=== PATIENT | female | born 1965 | race Asian ===

== ENCOUNTER 2016-10-28 09:48 | Observation (INO) | payer OTHER ==
[2016-10-28] VITALS (23 sets, daily range): BP systolic 93–143; BP diastolic 52–64; PULSE 47–66; RESP 12–25; Ht 170.2 cm; Wt 69.7 kg
[~2016-10-28] VITALS: Ht 170.2 cm; Wt 69.7 kg
[~2016-10-28 09:48] MED LIST: CEFAZOLIN 2 GM/50 ML (PMX) 50 ML IVPB SCH; SOD CHLORIDE 0.9% 1,000 ML IV SCH
--- NOTE | 2016-10-28 10:44 | RADRPT ---
PROCEDURE: XR Chest. CLINICAL INDICATION: preprocedure, right-sided breast cancer TECHNIQUE: Single frontal view of the chest was obtained. COMPARISON: None. FINDINGS: The heart and mediastinum are within normal limits. The lungs are clear. There is no significant pleural effusion or pneumothorax. IMPRESSION: No acute disease. RPTAT: EE Physician Amilcar Date Time Electronically viewed and signed by Anthony Loredo Physician on 10/28/2016 10:44 RA/
[2016-10-28 11:29] LABS: ADD SCAN DIFF NO
[2016-10-28] MEDS ORDERED: ONDANSETRON 4 MG INJ IV PRN (11:30)
[2016-10-28] MEDS ORDERED: ACETAMINOPHEN 1000MG/100ML IV 100 ML IVPB PRN (11:30)
[2016-10-28] MEDS ORDERED: morphine 2 MG INJ IV PRN (11:30)
[2016-10-28] MEDS ORDERED: MULTIVITAMINS (11:31)
[2016-10-28 11:43] LABS: BASOPHIL # 0.1 10^3/ul (0.0-0.1); EOSINOPHILS # 0.2 10^3/ul (0.0-0.5); EOSINOPHILS % 3.5 % (0.0-7.0); HEMATOCRIT 41.6 % (37.0-47.0); HEMOGLOBIN 13.4 g/dl (12.0-16.0); LYMPHOCYTES # 2.4 10^3/ul (0.8-2.9); LYMPHOCYTES % 45.3 % (15.0-51.0); MEAN CORPUSCULAR HEMOGLOBIN 31.4 pg (29.0-33.0); MEAN CORPUSCULAR HGB CONC 32.2 g/dl (32.0-37.0); MEAN CORPUSCULAR VOLUME 97.4 fl (82.0-101.0); MEAN PLATELET VOLUME 10.3 fl (7.4-10.4); MONOCYTE # 0.3 10^3/ul (0.3-0.9); MONOCYTES % 6.1 % (0.0-11.0); NEUTROPHIL # 2.3 10^3/ul (1.6-7.5); NEUTROPHILS % 43.9 % (39.0-77.0); PLATELET COUNT 239 10^3/UL (140-415); RED BLOOD COUNT 4.27 10^6/ul (4.20-5.40); RED CELL DISTRIBUTION WIDTH 13.5 % (11.5-14.5); WHITE BLOOD COUNT 5.2 10^3/ul (4.8-10.8)
[2016-10-28 11:49] LABS: INR 0.94; PROTIME 12.6 Sec (12.2-14.2)
[2016-10-28 11:51] LABS: PARTIAL THROMBOPLASTIN TIME 30.9 Sec (25.0-35.0)
[2016-10-28 11:52] LABS: CALCIUM 9.7 mg/dl (8.4-10.2); CREATININE 0.52 mg/dl (0.44-1.00)
[2016-10-28] MEDS ORDERED: ISOSULFAN BLUE 1% 5 ML INJ SC ONE (13:28)
[2016-10-28] MEDS ORDERED: MIDAZOLAM 1 MG/ML 2 ML INJ ONE (13:57)
[2016-10-28] MEDS ORDERED: PROPOFOL 20 ML ONE (13:58)
[2016-10-28] MEDS ORDERED: LIDOCAINE 1% (MDV) 20 ML INJ ONE (13:58)
[2016-10-28] MEDS ORDERED: ONDANSETRON 4 MG INJ ONE (14:16)
[2016-10-28] MEDS ORDERED: CEFAZOLIN 1 GM INJ ONE ×2 (14:16→14:18)
[2016-10-28] MEDS ORDERED: FAMOTIDINE 20 MG INJ ONE (14:16)
[2016-10-28] MEDS ORDERED: DEXAMETHASONE 4 MG/ML 1 ML INJ ONE (14:16)
[2016-10-28] MEDS ORDERED: KETOROLAC 30 MG INJ ONE (14:17)
[2016-10-28] MEDS ORDERED: HYDROmorphONE (0.2 MG/ML) 10ML SYG IV PRN (15:30)
[2016-10-28] MEDS ORDERED: MEPERIDINE 25 MG INJ IV PRN (15:30)
[2016-10-28] MEDS ORDERED: DIPHENHYDRAMINE 50 MG INJ IV PRN (15:30)
[2016-10-28] MEDS: HYDROmorphONE (0.2 MG/ML) 10ML SYG IV PRN ×2 (15:57→16:19)
--- NOTE | 2016-10-28 17:48 | OPR ---
DATE OF OPERATION: 10/28/2016 PREOPERATIVE DIAGNOSIS: Invasive cancer, right breast. POSTOPERATIVE DIAGNOSIS: Invasive cancer, right breast. OPERATION PERFORMED: Right partial mastectomy with resection of the nipple areolar complex and axil scarlet dissection utilizing sentinel lymph node technique. ANESTHESIA: General. ANESTHESIOLOGIST: Jere Gomez DO SURGEON: Jean Orona MD GUNCOTTON PACKER: Sterling Villagran MD INDICATIONS FOR PROCEDURE: The patient is a 51-year-old female who noticed a change in her right ni pple, it began to become retracted. She underwent a workup and was found to have a tumor directly u nder the nipple. Core biopsy revealed it to be an invasive cancer. Complicating her presentation i s the fact that she has bilateral silicone implants in place. We discussed the options, she was lico y motivated to save her breast and she elected to undergo a partial mastectomy with resection of the nipple areolar complex and sentinel lymph node biopsy. She consented and was scheduled for surgery . DESCRIPTION OF PROCEDURE: The patient was brought to the operating theater, placed under general an esthesia. The right breast was prepped and draped in usual sterile fashion. Approximately 4 mL of 1% Lymphazurin blue dye were then injected peritumorally and the breast was gently massaged for appr oximately 10 minutes. At this point, a 2 to 3 cm incision was made in the right axillary hairline. Subcutaneous tissue was dissected with cautery down through the clavipectoral fascia, a dye-stained lymphatic was identified. Followed to what appeared to be the sentinel node. This node was resect ed as well as some additional axillary tissue in this region. Attending pathologist, Dr. Mo desir examined the node and stated it was grossly negative. Therefore, no further tissue was resecte d. The wound was irrigated. Minimal bleeding was controlled with cautery. A #10 flat Earle-Prat t drain was brought through the right mid axillary line, cut to size and laid within the axilla. It was secured in place with a 2-0 nylon suture in the standard fashion. The skin was then reapproxim ated with a 4-0 Vicryl suture in subcuticular fashion. Attention was then directed to performing the partial mastectomy. An elliptical incision was imbric ated with marking pen around the nipple areolar complex. It was carried out with 15 blade scalpel. Subcutaneous tissue was then dissected with cautery. Wide circumferential dissection of the tissue associated with the mass and the nipple areolar complex then took place using cautery. Specimen wa s elevated, transected, oriented, and sent for pathologic analysis. The wound was irrigated. Minim al bleeding was controlled with cautery. Skin was reapproximated with a deep dermal layer of 4-0 Vi cryls in interrupted fashion, followed by final skin approximation with 5-0 PDS suture in subcuticul ar fashion. Benzoin and Steri-Strips were then applied to both incisions. Patient tolerated proced ure well. Estimated blood loss was 30 mL. There were no complications. The patient was transporte d in stable condition to the recovery room where circumferential compression dressing was applied. Dictated By: JEAN ORONA MD TL/NTS Conf#: [id number] DID#: [id number] CC: STERLING VILLAGRAN MD;*EndCC*
[2016-10-28] MEDS: D5W-0.45 NACL + KCL 20 MEQ 1,000 ML IV SCH ×2 (18:30→19:02)
--- NOTE | 2016-10-28 20:24 | HP ---
DATE OF ADMISSION: 10/28/2016 HISTORY OF PRESENT ILLNESS: The patient is a 51-year-old female who denies any past medical history . The patient was diagnosed with invasive cancer of the right breast status post core biopsy. The patient was evaluated by Dr. Orona in general surgery consultation. The patient initially noted a r ight breast mass with nipple retraction with confirmed biopsy for the invasive cancer. The patient was brought to the hospital and underwent right partial mastectomy and axillary section utilizing se ntinel lymph node technique. Postoperatively, the patient experienced pain and the patient will be admitted for further evaluation and management. PAST MEDICAL HISTORY: The patient denies having any past medical history. PAST SURGICAL HISTORY: The patient is status post bilateral breast implants 9 years ago. FAMILY HISTORY: Negative for history of breast or ovarian cancer. ALLERGIES: THE PATIENT IS ALLERGIC TO LASIX, BUT IS NOT SURE WHAT KIND OF REACTION SHE HAD. MEDICATIONS ON ADMISSION: The patient takes multivitamins. REVIEW OF SYSTEMS: A 12-point review of systems is negative unless mentioned in the HPI. PHYSICAL ASSESSMENT GENERAL: Well-developed, well-nourished female. Currently is awake, alert. VITAL SIGNS: Temperature is 98.3, pulse is 56, blood pressure is 140/63, respiratory rate 24, oxyge n saturation 97% on room air. HEENT: Head is atraumatic, normocephalic. Pupils equal, round, reactive to light and accommodation . Oral mucosa is pink and moist. NECK: Supple. No cervical lymphadenopathy, no thyromegaly. CHEST: Lungs clear bilaterally with no rhonchi, wheezes, rales noted. Status post surgery with a d ry, clean, intact dressing and axillary JPs. CARDIOVASCULAR: Normal S1, S2. No murmurs, gallops, clicks, rubs noted. ABDOMEN: Round, soft, nondistended, nontender. Bowel sounds present in all 4 quadrants. No guardi ng. EXTREMITIES: No edema, clubbing, cyanosis. Pulses equal bilaterally 2+. SKIN: There is no rash, petechiae noted. NEUROLOGIC: The patient is awake, alert, and oriented x4. No focal deficits noted. Motor strength 5/5 in all extremities. LABORATORY DATA: On admission, CBC: White blood cells 2.5, hemoglobin 13.4, hematocrit 41.6, plate lets 239. BMP: Sodium is 138, potassium 4.0, chloride 107, carbon dioxide 24, anion gap 11, BUN is 16, creatinine 0.52, glucose 89, calcium 9.7. PT is 12.6, INR is 0.94, aPTT is 30.9. ASSESSMENT AND PLAN: Invasive cancer of the right breast status post partial mastectomy utilizing s entinel lymph node technique. We are going to admit the patient to medical/surgical floor. Continu e Tylenol and morphine p.r.n. for pain, Zofran p.r.n. for nausea. The patient received perioperativ e antibiotics. Continue IV fluids and monitor electrolytes. Will continue sequential compression device for deep venous thrombosis prophylaxis. Further recommendations based on clinical course. Plan of care discussed with Dr. Mitchell. Dictated By: NEFTALY MEDLEY WHEAT CLEANER for MEKA MITCHELL MD SR/NTS Conf#: [id number] DID#: [id number]
[2016-10-29 00:05] VITALS: BP 93/52; RESP 21
[2016-10-29] MEDS: D5W-0.45 NACL + KCL 20 MEQ 1,000 ML IV SCH ×3 (02:37→19:02)
[2016-10-29 07:45] VITALS: BP 112/52; RESP 18
[2016-10-29 08:29] LABS: ADD SCAN DIFF NO
[2016-10-29 08:40] LABS: BASOPHILS % 0.1 % (0.0-2.0); HEMATOCRIT 39.7 % (37.0-47.0); HEMOGLOBIN 13.4 g/dl (12.0-16.0); LYMPHOCYTES # 1.5 10^3/ul (0.8-2.9); LYMPHOCYTES % 19.8 % (15.0-51.0); MEAN CORPUSCULAR HEMOGLOBIN 32.5 pg (29.0-33.0); MEAN CORPUSCULAR HGB CONC 33.8 g/dl (32.0-37.0); MEAN CORPUSCULAR VOLUME 96.4 fl (82.0-101.0); MEAN PLATELET VOLUME 10.3 fl (7.4-10.4); MONOCYTE # 0.4 10^3/ul (0.3-0.9); MONOCYTES % 5.8 % (0.0-11.0); NEUTROPHIL # 5.5 10^3/ul (1.6-7.5); NEUTROPHILS % 73.9 % (39.0-77.0); PLATELET COUNT 245 10^3/UL (140-415); RED BLOOD COUNT 4.12 10^6/ul (4.20-5.40); RED CELL DISTRIBUTION WIDTH 13.2 % (11.5-14.5); WHITE BLOOD COUNT 7.4 10^3/ul (4.8-10.8)
[2016-10-29 08:49] LABS: POTASSIUM 4.1 mmol/L (3.5-5.1)
[2016-10-29 08:51] LABS: CREATININE 0.52 mg/dl (0.44-1.00)
[2016-10-29 08:52] LABS: CALCIUM 8.9 mg/dl (8.4-10.2)
[2016-10-29 19:43] VITALS: BP 102/53; RESP 18
--- NOTE | 2016-10-29 19:47 | PN ---
DATE: 10/29/2016 SUBJECTIVE: Postop day #1. No complaint. OBJECTIVE: VITAL SIGNS: 97.6 -- 54 -- 18 -- ____ -- 94% on room air. Status post right partial mastectomy and axillary dissection J.P. drainage in the axillary area. Drain has drained over 25 mL since morning and is somewhat bloody. ASSESSMENT AND PLAN: The patient is stable. The patient can be discharged home with Earle-Jane drain. The nurse is going to teach the patient how to drain and how to record it. The patient to call Dr. Ruelas' office tomorrow and make an appointment. Pain medication will be supplied. Dictated By: LEOBARDO VILLAGRAN MD PS/NTS Conf#: [id number] DID#: [id number] CC: GIA RUELAS MD;*EndCC* MTDD
--- NOTE | 2016-10-29 22:04 | RADRPT ---
Vent Rate: 48 bpm RR Interval: 0 msec [place] Interval: 234 msec QRS Duration: 104 msec QT Interval: 444 msec QTC Interval: 396 msec P-R-T [place]: 59 - 21 - 53 degrees Marked sinus bradycardia with 1st degree AV block Incomplete right bundle branch block Abnormal ECG Electronically Signed By: Nate Magallanes [id number]
== END 2016-10-29 20:30 | disposition home or self-care (01) ==
LOC: SDS 09:48 → MS1 18:25 → SDS 10-29 08:06 → MS1 10-29 08:07
PROVIDERS: ADMIT Surgery Surgical Oncology; ATTEND Surgery Surgical Oncology
DX: C50.911 Malignant neoplasm of unspecified site of right female breast (principal)
CPT/HCPCS: 19301; 38500; 38792; 71010; 80048; 85025; 85610; 85730; 88307; 88331; 93005; 96360; 96361; J0690; J1100; J1170; J2250; J2405; J3010; J3480; Z7500; Z7512; Z7610; G0378; J1885; Q9968